=== PATIENT | female | born 1940 | race Caucasian/White ===

== ENCOUNTER 2022-09-27 07:30 | Inpatient (IN) | payer OTHER ==
[~2022-09-27] VITALS: Ht 160 cm; Wt 89.4 kg
[2022-11-01] VITALS (7 sets, daily range): BP systolic 120–145; PULSE 55–96; RESP 16–18; TEMP 97–97.4; O2SAT 93–97
[2022-11-01] MEDS ORDERED: oxyCODONE HCL 10 MG TAB.ER.12H PO ONE ×2 (06:15→06:26)
[2022-11-01] MEDS ORDERED: ACETAMINOPHEN 500 MG TABLET PO ONE (06:15)
[2022-11-01] MEDS ORDERED: SCOPOLAMINE HYDROBROMIDE 1 MG PATCH .72 H (TRANSDERM-SCOP) TD ONE ×2 (06:15→06:25)
[2022-11-01] MEDS ORDERED: GABAPENTIN 300 MG CAPSULE PO ONE (06:15)
[2022-11-01] MEDS ORDERED: CELECOXIB 100 MG CAPSULE PO ONE (06:15)
[2022-11-01] MEDS ORDERED: CELECOXIB 100 MG CAPSULE ONE (06:24)
[2022-11-01] MEDS ORDERED: GABAPENTIN 300 MG CAPSULE ONE (06:26)
[2022-11-01] MEDS ORDERED: ACETAMINOPHEN 500 MG TABLET ONE (06:27)
[2022-11-01] MEDS ORDERED: TRANEXAMIC ACID 1,000 MG/10 ML VIAL IV ONE (06:45)
[2022-11-01] MEDS ORDERED: CEFAZOLIN SOD 2 GM in D5W 50 ML IV ONE (06:45)
[2022-11-01] MEDS ORDERED: LR 1,000 ML IV.SOLN IV ONE (07:35)
[2022-11-01] MEDS ORDERED: TRANEXAMIC ACID 1,000 MG/10 ML VIAL ONE (07:35)
[2022-11-01] MEDS ORDERED: VANCOMYCIN HCL 1000 MG/VIAL IV ONE (07:35)
[2022-11-01] MEDS ORDERED: BUPIVACAINE /DEX PF 0.75% SPINAL 2 ML AMP INJ ONE (07:35)
[2022-11-01] MEDS ORDERED: MORPHINE SULFATE 10MG/10ML PF AMP ONE (07:35)
[2022-11-01] MEDS ORDERED: KETOROLAC TROMETHAMINE 30 MG VIAL ONE (07:35)
[2022-11-01] MEDS ORDERED: BUPIVACAINE /PF 0.25% 30 ML VIAL INJ ONE (07:35)
[2022-11-01] MEDS ORDERED: WATER FOR IRRIGATION,STERILE 1,000 ML IRRIG.SOLN IR ONE (07:35)
[2022-11-01] MEDS ORDERED: ONDANSETRON HCL 4 MG/2 ML VIAL ONE (07:35)
[2022-11-01] MEDS ORDERED: MIDAZOLAM HCL 2 MG/2 ML VIAL (VERSED) ONE (07:35)
[2022-11-01] MEDS ORDERED: NALOXONE HCL 0.4 MG/ML AMP (NARCAN) IVP PRN ×4 (08:30→10:00)
[2022-11-01] MEDS ORDERED: DIPHENHYDRAMINE INJ 50 MG/ML VIAL IVP PRN (08:30)
[2022-11-01] MEDS ORDERED: HYDROmorphone 1 MG/ML INJ. CARTRIDGE IVP PRN ×5 (08:30→11:00)
[2022-11-01] MEDS ORDERED: MEPERIDINE HCL/PF 25 MG/ML DISP.SYRIN IVP PRN (08:30)
[2022-11-01] MEDS ORDERED: LABETALOL 100 MG/ 20ML VIAL IVP PRN (08:30)
[2022-11-01] MEDS ORDERED: ONDANSETRON HCL 4 MG/2 ML VIAL IVP PRN ×2 (08:30→11:45)
[2022-11-01] MEDS ORDERED: hydrALAZINE HCL 20 MG/ML VIAL IVP PRN (08:30)
[2022-11-01] MEDS ORDERED: LR 1,000 ML IV SCH (08:30)
[2022-11-01] MEDS ORDERED: METOCLOPRAMIDE HCL 10 MG/2 ML VIAL IVP PRN ×2 (08:30→10:00)
[2022-11-01] MEDS ORDERED: AMLO5TAB4 PO (09:43)
[2022-11-01] MEDS ORDERED: LIP10 PO (09:43)
[2022-11-01] MEDS ORDERED: METF-380 PO (09:43)
[2022-11-01] MEDS ORDERED: CARV25TA55 PO (09:43)
[2022-11-01] MEDS ORDERED: PIOG30TA70 PO (09:43)
[2022-11-01] MEDS ORDERED: LEVO25TA7 PO (09:43)
[2022-11-01] MEDS ORDERED: LACTULOSE 20 GM/30 ML UDC PO PRN (10:00)
[2022-11-01] MEDS ORDERED: DIPHENHYDRAMINE HCL 25 MG CAPSULE PO PRN (10:00)
[2022-11-01] MEDS ORDERED: BISACODYL 10 MG/SUPPOSITORY RC PRN (10:00)
[2022-11-01] MEDS ORDERED: INSULIN REGULAR, HUMAN 100 UNITS/ML, 3 ML VIAL (humuLIN R) SUBCUT PRN (10:15)
[2022-11-01] MEDS ORDERED: GLUCOSE (DEXTROSE) ORAL GEL -Adults PO PRN (10:15)
[2022-11-01] MEDS ORDERED: DEXTROSE 50% JECT 50 ML DISP.SYRIN IVP PRN (10:15)
[2022-11-01] MEDS ORDERED: D5W 1,000 ML IV PRN (10:15)
[2022-11-01] MEDS ORDERED: LORATADINE 10 MG TABLET PO PRN (11:00)
[2022-11-01] MEDS ORDERED: oxyCODONE HCL 5 MG TABLET PO PRN ×2 (11:00)
[2022-11-01] MEDS ORDERED: traMADol HCL HCL 50 MG TABLET (ULTRAM) PO PRN (11:00)
[2022-11-01] MEDS: ceFAZolin SODIUM 2 GM in D5W 50 ML IV SCH ×2 (14:48→21:23)
[2022-11-01] MEDS: KETOROLAC TROMETHAMINE 10 MG TABLET (TORADOL) PO SCH ×2 (14:49→21:41)
[2022-11-01] MEDS: ACETAMINOPHEN 500 MG TABLET PO SCH ×2 (14:50→21:42)
[2022-11-01] MEDS ORDERED: ATORVASTATIN 10 MG TABLET PO SCH (21:00)
[2022-11-01] MEDS: CARVEDILOL 25 MG TABLET (COREG) PO SCH (21:00)
[2022-11-01] MEDS: SENNOSIDES/DOCUSATE SODIUM 1 TAB TABLET(SENOKOT-S) PO SCH (21:21)
[2022-11-02 01:12] VITALS: BP_SYST 122; PULSE 60; RESP 17; TEMP 97.8; O2SAT 94
[2022-11-02] MEDS: ceFAZolin SODIUM 2 GM in D5W 50 ML IV SCH (05:04)
[2022-11-02 05:40] LABS: BASOPHILS % (AUTO) 0.1 % (0.0-2.0); HEMATOCRIT 34.7 % (36-48); HEMOGLOBIN 11.7 g/dL (12.0-16.0); LYMPHOCYTES # (AUTO) 0.6 K/uL (1.0-5.5); LYMPHOCYTES % (AUTO) 4.6 % (20.5-51.5); MEAN CORPUSCULAR HEMOGLOBIN 30 pg (27-31); MEAN CORPUSCULAR HGB CONC 34 % (32-36); MEAN CORPUSCULAR VOLUME 88 fL (79.0-98.0); MONOCYTES # (AUTO) 0.6 K/uL (0.0-1.0); MONOCYTES % (AUTO) 4.7 % (1.7-9.3); NEUTROPHILS # (AUTO) 11.8 K/uL (1.8-7.7); NEUTROPHILS % (AUTO) 90.6 % (40.0-70.0); PLATELET COUNT (AUTO) 201 K/uL (130-430); RED BLOOD CELL COUNT(AUTO) 3.94 MIL/uL (4.2-6.2); RED CELL DISTRIBUTION WIDTH 14.7 % (9.0-15.0); WHITE BLOOD COUNT (AUTO) 13.1 K/uL (4.8-10.8)
[2022-11-02 05:49] LABS: ANION GAP 8 (5-15); CALCIUM 8.7 mg/dL (8.4-11.0); CARBON DIOXIDE 28 mmol/L (23-29); CHLORIDE 98 mmol/L (98-107); CREATININE 0.72 mg/dL (0.55-1.30); GLUCOSE 168 mg/dL (74-106); POTASSIUM 3.7 mmol/L (3.5-5.1); SODIUM SERUM 134 mmol/L (136-145); UREA NITROGEN, BLOOD 17 mg/dL (8-21)
[2022-11-02] MEDS: ACETAMINOPHEN 500 MG TABLET PO SCH (06:26)
[2022-11-02] MEDS: KETOROLAC TROMETHAMINE 10 MG TABLET (TORADOL) PO SCH (06:26)
[2022-11-02] MEDS ORDERED: LEVOTHYROXINE SODIUM 0.025 MG TABLET PO SCH (07:00)
[2022-11-02] MEDS ORDERED: DIPHENHYDRAMINE HCL 12.5 MG/5 ML UDC PO ONE (08:15)
[2022-11-02] MEDS ORDERED: PIOGLITAZONE HCL 15 MG TABLET PO SCH (09:00)
[2022-11-02] MEDS ORDERED: ASPIRIN 81 MG TAB.CHEW PO SCH (09:00)
[2022-11-02] MEDS ORDERED: amLODIPine BESYLATE 5 MG TABLET PO SCH (09:00)
[2022-11-02] MEDS: CARVEDILOL 25 MG TABLET (COREG) PO SCH (09:24)
[2022-11-02] MEDS: SENNOSIDES/DOCUSATE SODIUM 1 TAB TABLET(SENOKOT-S) PO SCH (09:25)
[2022-11-02] MEDS ORDERED: CELECOXIB 200 MG CAPSULE PO SCH (11:00)
[2022-11-02 12:22] VITALS: BP_SYST 130; PULSE 65; RESP 18; TEMP 97.8; O2SAT 97
[2022-11-02 12:56] VITALS: O2SAT 92
[2022-11-02] MEDS ORDERED: DIPHENHYDRAMINE HCL 25 MG CAPSULE PO SCH (13:00)
[2022-11-02 13:49] VITALS: BP_SYST 125; PULSE 65; RESP 17; TEMP 97.2; O2SAT 92
== END 2022-11-02 14:10 | disposition home or self-care (01) | DRG 470 ==
LOC: SMU 11-01 05:30
PROVIDERS: ADMIT Student in an Organized Health Care Education/Training Program; ATTEND Student in an Organized Health Care Education/Training Program
PROC: 0SRD0J9 Replacement of Left Knee Joint with Synthetic Substitute, Cemented, Open Approach (ICD-10-PCS; principal; 2022-11-01 07:45)
DX: M17.12 Unilateral primary osteoarthritis, left knee (principal); I11.0 Hypertensive heart disease with heart failure; I50.9 Heart failure, unspecified; E11.9 Type 2 diabetes mellitus without complications; Z79.899 Other long term (current) drug therapy
CPT/HCPCS: 36415; 73560-TC; 80048; 82948; 82962; 85025; 87081; 88305; 88311; 93005; 94010; 96379; 97116-GP; 97163-GP; 97530-GP; C1713; C1776; J0690; J1885; J2274; J2405; J3370; J3465; J3490; J7060; J7120; Q0163